=== PATIENT | male | born 1970 ===

== ENCOUNTER → 2019-11-18 | Outpatient (CLI) | payer OTHER ==
[2014-12-06 08:49] VITALS: BP 115/60
[~2019-11-18] MED LIST: MEDROL DOSE PACK PO; RANI-369 PO; TRAM50TA PO; [UNRECOGNIZED DRUG - OTHER] TP
--- NOTE | 2019-11-18 17:36 | KCIC ---
STUDY: MRI of the left knee without contrast INDICATION: Left knee pain. COMPARISON: 11/03/2019 radiographs TECHNIQUE: Multiplanar MR imaging of the left knee performed without the use of intravenous or intra-articular contrast. FINDINGS: Menisci: The lateral meniscus is intact. Complex tearing involving the medial meniscal body to include a full-thickness radial component. This is seen as absence of the meniscus on coronal image 12 series 10. Anterior and posterior root insertion fibers remain intact. The intact portion of the medial meniscal body is extruded from the joint line. Cruciate ligaments: Intact. Collateral ligaments: No acute injury. Tendons: The extensor mechanism is intact. The additional tendons at the knee are intact as well. 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 Fissuring at the trochlear groove. Lateral compartment: High-grade/full-thickness chondral loss seen at the weightbearing lateral compartment involving both the femoral condyle and tibial plateau, image 19 series 4. Chondral loss extends to involve the proximal portion of the nonweightbearing lateral femoral condyle, image 8 series 8. Medial compartment: Extensive high-grade/full-thickness chondral loss throughout the weightbearing aspect of the compartment. Less pronounced involvement of the posterior nonweightbearing medial femoral condyle. Bones: Scattered mild marrow edema relating to overlying chondrosis but greatest at the medial tibial plateau. Heterogeneous marrow signal without aggressive features. No acute fracture. Miscellaneous: Moderate knee joint effusion with synovitis and scattered loose bodies. Leaking Garcia's cyst. Subcutaneous edema about the knee. IMPRESSION: 1. Complex tearing involving the medial meniscal body to include a full-thickness radial tear through the mid aspect of the body segment. The intact portion of the meniscal body is extruded from the joint line. 2. Intact lateral meniscus, cruciate ligaments and collateral ligaments. 3. 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 There are multifocal areas of high-grade/full-thickness chondral loss with associated subchondral marrow edema. 4. Moderate knee joint effusion with synovitis and scattered loose bodies. Small/moderate-sized leaking Garcia's cyst. Electronically signed by: SHIMA MARISCAL MD (11/18/2019 5:33 PM) [id number]
== END | disposition home or self-care (01) ==
LOC: KCIC MRI 15:56
PROVIDERS: ATTEND Orthopaedic Surgery Sports Medicine
DX: S83.242A Other tear of medial meniscus, current injury, left knee, initial encounter (principal); M25.462 Effusion, left knee; M65.88 Other synovitis and tenosynovitis, other site; M71.22 Synovial cyst of popliteal space [Baker], left knee; X58.XXXA Exposure to other specified factors, initial encounter; Y93.89 Activity, other specified; Y92.89 Other specified places as the place of occurrence of the external cause; Y99.8 Other external cause status
CPT/HCPCS: 73721

== ENCOUNTER → 2021-09-19 | Outpatient (CLI) | payer OTHER ==
[2014-12-06 08:49] VITALS: BP 115/60
[2021-09-19 10:06] LABS: BASO # 0.1 x10^3/uL (0.0-0.2); BASO % 1 % (0-3); EOS # 0.3 x10^3/uL (0.0-0.7); EOS % 4 % (0-3); HEMATOCRIT 44.9 % (39.0-53.0); HEMOGLOBIN 15.2 g/dL (13.0-17.5); LYMPH # 1.2 x10^3/uL (1.0-4.8); LYMPH % 16 % (24-48); MEAN CORPUSCULAR HEMOGLOBIN 29 pg (25-35); MEAN CORPUSCULAR HGB CONC 34 g/dL (31-37); MEAN CORPUSCULAR VOLUME 85 fL (79-100); MONO # 0.4 x10^3/uL (0.0-1.1); MONO % 5 % (0-9); NEUT # 5.1 x10^3/uL (1.8-7.7); NEUT % 73 % (31-73); PLATELET COUNT 300 x10^3/uL (140-400); RED BLOOD COUNT 5.26 x10^6/uL (4.30-5.70); RED CELL DISTRIBUTION WIDTH 13.2 % (11.5-14.5)
[2021-09-19 10:14] LABS: CALCIUM 8.4 mg/dL (8.5-10.1); CREATININE 0.7 mg/dL (0.7-1.3); GFR 119.9; POTASSIUM 4.3 mmol/L (3.5-5.1)
[2021-09-19 10:20] LABS: ALBUMIN 3.4 g/dL (3.4-5.0); ALBUMIN/GLOBULIN RATIO 0.8 (1.0-1.7); TOTAL BILIRUBIN 0.5 mg/dL (0.2-1.0); TOTAL PROTEIN 7.5 g/dL (6.4-8.2)
[2021-09-20 15:15] LABS: COMMENT IMMUNOFIX SERUM Note: (.); IMMUNOGLOBULIN A 204 mg/dL (90-386); IMMUNOGLOBULIN G 1153 mg/dL (603-1613); IMMUNOGLOBULIN M 45 mg/dL (20-172)
[2021-09-20 16:12] LABS: KAPPA LAMBDA RATIO 1.97 (0.26-1.65); LAMBDA FREE 14.7 mg/L (5.7-26.3)
[2021-09-20 22:09] LABS: ALBUM 3.9 g/dL (2.9-4.4); ALPHA 1 0.2 g/dL (0.0-0.4); ALPHA 2 0.6 g/dL (0.4-1.0); BETA 0.9 g/dL (0.7-1.3); PROTEIN TOTAL 6.6 g/dL (6.0-8.5); SPEP AG RATIO 1.4 (0.7-1.7)
== END ==
LOC: ONCLAB 09:44
PROVIDERS: ATTEND Internal Medicine Hematology & Oncology
DX: D47.2 Monoclonal gammopathy (principal)
CPT/HCPCS: 36415; 80053; 82784; 83520; 84165; 85025; 86334